=== PATIENT | female | born 1985 | race Caucasian/White ===

== ENCOUNTER → 2017-09-09 | Outpatient (CLI) | payer OTHER | LOC: FIMAGING 08:13 | PROVIDERS: ATTEND Advanced Practice Midwife | DX: Z36.89 Encounter for other specified antenatal screening (principal); Z3A.12 12 weeks gestation of pregnancy ==

== ENCOUNTER → 2017-11-08 | Outpatient (CLI) | payer OTHER | LOC: FIMAGING 11:34 | PROVIDERS: ATTEND Obstetrics & Gynecology | DX: O28.8 Other abnormal findings on antenatal screening of mother (principal); Z3A.21 21 weeks gestation of pregnancy ==

== ENCOUNTER → 2017-12-16 | Outpatient (CLI) | payer OTHER | LOC: FIMAGING 14:13 | PROVIDERS: ATTEND Obstetrics & Gynecology | DX: O28.8 Other abnormal findings on antenatal screening of mother (principal); Z3A.28 28 weeks gestation of pregnancy ==

== ENCOUNTER 2018-03-06 19:52 | Inpatient (IN) | payer OTHER ==
[2018-03-06] MEDS ORDERED: MISOPROSTOL 200 MCG TAB PR PRN (20:24)
[2018-03-06] MEDS ORDERED: OXYTOCIN/NORMAL SALINE 1,000 ML IV PRN (20:24)
[2018-03-06] MEDS ORDERED: LR 1,000 ML IV PRN (20:24)
[2018-03-06] MEDS ORDERED: LIDOCAINE 1% 300 MG/30 ML SDV SC PRN (20:24)
[2018-03-06] MEDS ORDERED: OLIVE OIL 118 ML BTL MISC PRN (20:24)
[2018-03-06] MEDS ORDERED: EPSOM SALT 454 GM TP PRN (20:24)
[2018-03-06] MEDS ORDERED: TERBUTALINE SULFATE 1 MG/ML VIAL IV PRN (20:24)
[2018-03-06] MEDS ORDERED: OLIVE OIL 118 ML BTL ONE (20:50)
[2018-03-06] MEDS ORDERED: LIDOCAINE 1% 300 MG/30 ML SDV ONE (20:50)
[2018-03-06] MEDS ORDERED: OXYTOCIN 10 UNIT/ML VIAL ONE (20:51)
[2018-03-06] MEDS ORDERED: MISOPROSTOL 200 MCG TAB ONE (20:51)
[2018-03-06] MEDS ORDERED: AMMONIA AROMATIC 1 EACH AMP IH ONE (20:51)
[2018-03-06] MEDS ORDERED: TERBUTALINE SULFATE 1 MG/ML VIAL ONE (20:51)
[2018-03-06 21:17] LABS: PLATELET COUNT 241 10^3/uL (150-400)
[2018-03-06] MEDS ORDERED: fentaNYL 100 MCG/2 ML INJ ONE (21:45)
[2018-03-06] MEDS ORDERED: PHENYLEPHRINE HCL 100 MCG/ML SYR ONE (21:45)
[2018-03-06] MEDS ORDERED: fentaNYL 200 MCG, BUPIVACAINE 0.5% 20 ML in NS 100 ML EP SCH (22:00)
[2018-03-06] MEDS ORDERED: PHENYLEPHRINE HCL 100 MCG/ML SYR IVP PRN (22:26)
[2018-03-06] MEDS ORDERED: METOCLOPRAMIDE 10 MG/2 ML VIAL IVP PRN (22:26)
[2018-03-06] MEDS ORDERED: ONDANSETRON 4 MG/2 ML VIAL IVP PRN (22:26)
[2018-03-06] MEDS ORDERED: NALOXONE HCL 0.4 MG/ML INJ IVP PRN (22:26)
--- NOTE | 2018-03-06 22:26 | PREANESOB ---
Obstetric Pre-Anesthesia Info - General Info Proposed Procedure: louis NPO Start Time: 22:24 : 1 Para: 0 SAMANTHA: 03/10/18 Gestational Age: 39 week(s) and 3 day(s) - Info Monitors: External - Labor Status Cervical Dilation per last OB SVE: 3 PIH: No Magnesium Sulfate in Use: No Indications for Labor Analgesia: Pain Control Labor Epidural: Yes Anesthesia Allergies/Adverse Reactions: Allergy/AdvReac Type Severity Reaction Status Date / Time No Known Allergies Allergy Verified 03/06/18 20:28 Visit Medications: Generic Name Dose Route Start Last Admin Trade Name Freq PRN Reason Stop Dose Admin Lactated Ringer's 1,000 mls @ 0 mls/hr 03/06/18 20:24 Lr IV 03/07/18 20:23 PRN PRN SEE PROTOCOL CONDITIONS Protocol Per Protocol Oxytocin/Sodium Chloride 1,000 mls @ 0 mls/hr 03/06/18 20:24 Pitocin 20 Units/Ns (Premix) IV PRN PRN Post Bleeding Per Protocol Fentanyl 200 mcg/ Bupivacaine 100 mls @ 0 mls/hr 03/06/18 22:00 HCl 20 ml/ Sodium Chloride EP 03/16/18 21:59 CONT JOSE Protocol As Directed Ibuprofen 600 mg 03/06/18 20:24 Motrin PO 09/02/18 20:23 Q6HRS PRN post , inflammation Lidocaine HCl 300 mg 03/06/18 20:24 Lidocaine Hcl 1% SC 09/02/18 20:23 ONCE PRN episiotomy Magnesium Sulfate 454 gm 03/06/18 20:24 Epsom Salt TP 09/02/18 20:23 Q1H PRN perineal discomfort Misoprostol 800 - 1,000 mcg 03/06/18 20:24 Cytotec MD ONCE PRN Vaginal Atony/Bleeding Ludlow Oil 118 ml 03/06/18 20:24 Sweet Oil MISC 09/02/18 20:23 ONCE PRN perineal massage Terbutaline Sulfate 0.25 mg 03/06/18 20:24 Brethine IV 09/02/18 20:23 ONCE PRN Tachysystole Discontinued Medications Generic Name Dose Route Start Last Admin Trade Name Freq PRN Reason Stop Dose Admin Ammonia (Aromatic Spirit) Confirm 03/06/18 20:51 Ammonia Aromatic Administered 03/06/18 20:52 Dose 1 each IH .STK-MED ONE Ephedrine Sulfate Confirm 03/06/18 21:45 Ephedrine Sulfate Administered 03/06/18 21:46 Dose 50 mg .ROUTE .STK-MED ONE Fentanyl Confirm 03/06/18 21:45 Sublimaze Administered 03/06/18 21:46 Dose 100 mcg .ROUTE .STK-MED ONE Lidocaine HCl Confirm 03/06/18 20:50 Lidocaine Hcl 1% Administered 03/06/18 20:51 Dose 300 mg .ROUTE .STK-MED ONE Misoprostol Confirm 03/06/18 20:51 Cytotec Administered 03/06/18 20:52 Dose 1,000 mcg .ROUTE .STK-MED ONE Ludlow Oil Confirm 03/06/18 20:50 Sweet Oil Administered 03/06/18 20:51 Dose 118 ml .ROUTE .STK-MED ONE Oxytocin Confirm 03/06/18 20:51 Pitocin Administered 03/06/18 20:52 Dose 40 unit .ROUTE .STK-MED ONE Phenylephrine HCl Confirm 03/06/18 21:45 Neosynephrine Administered 03/06/18 21:46 Dose 1,000 mcg .ROUTE .STK-MED ONE Terbutaline Sulfate Confirm 03/06/18 20:51 Brethine Administered 03/06/18 20:52 Dose 1 mg .ROUTE .STK-MED ONE - Anesthesia History Response to Local Anesthetics: Normal Anesthesia & Operative History: No Prior Problems Family Anesthesia History: Negative - Social History Substance Use/Abuse: Denies - Vital Signs Height/Weight (Nursing): Height 162.56 cm Weight 79.379 kg - Focused Exam Neck exam: FROM Mallampati Score: Class 1 Mouth exam: normal dental/mouth exam Pulmonary: no respiratory distress Labs: 03/06/18 20:50 Patient ABO/Rh B NEGATIVE 03/06/18 20:50 - Plan Consent Signed and on Chart: Yes
[2018-03-06] MEDS ORDERED: LR 500 ML IV SCH (22:30)
[2018-03-06] MEDS ORDERED: ACETAMINOPHEN 500 MG TAB ONE (23:41)
[2018-03-06] MEDS ORDERED: ACETAMINOPHEN 500 MG TAB PO ONE (23:45)
--- NOTE | 2018-03-07 01:32 | GHP ---
[f rep st] PREOP HISTORY AND PHYSICAL DATE OF ADMISSION: 03/06/2018 HISTORY: Upon admission, the patient is a 32-year-old G1, P0 at 39-plus weeks' gestation with an est imated due date of 03/10/2018 who presents with increasing contractions with building intensity. The patient also has had increased moisture that she has felt was related to her mucus plug for a couple days. The fluid has been clear. Patient denies any vaginal bleeding. Has reported good move ment. The patient reports contractions have been mild again early this morning and started to increa se in frequency but remained mild until this evening. Upon initial exam in the hospital, the patient was 3 to 4 cm dilated, 70% effaced, at -1 station. Nitrazine check was positive. However, the kuldip ent admits to having a lot of intercourse this morning to try to stimulate labor. The patient initia lly wanted to pursue a natural labor pattern and use nitrous. However, the contraction intensity was increasing, and the patient requested an epidural for labor comfort. Upon my arrival, the patient w as receiving her epidural by Dr. Sykes of Anesthesia. Prior to the epidural, the baseline hear t rate was in the 150s with moderate variability with accelerations noted. After the epidural, the p atient became hypotensive, and there was prolonged deceleration. The patient had change of position and was given oxygen. She was on hands and knees position, and subcu terbutaline was given to lessen the contractions. The heartbeat did recover to the 170s but was minimal variability in the short te rm after the deceleration. The heart tones have continued to have a slow recovery pattern. CARE: The patient has been with [facility] since 8 weeks' gestation. The patient was seen by Maternal Medicine for 1st trimester nuchal translucency ultrasound. She also had cell free DNA testing that was negative. With MSAFP testing, the patient's result revealed an elevat ed AFP. The patient had an additional consult with a maternal specialist who had a good thorou gh evaluation of the body wall and felt that the spine and front body wall were intact. The suspicio n was that the increased AFP could be a placental factor and increased the patient's risk for IUGR an d placental dysfunction. LABS: The patient's blood type is B negative with negative antibody screen. RPR nonreactiv e. Rubella immune. Hepatitis B surface antigen negative. HIV negative. Standard genetic panel all negative. TSH was normal. Initial hematocrit 35% with drop to 33% in mid . Urinalysis an d culture were negative. Verifi testing was negative. One-hour Glucola normal. RhoGAM was received on December 19 after a negative antibody screen. GBS culture was negative. PAST MEDICAL HISTORY: The patient had abnormal Pap smear several years ago and had colposcopies x2. No treatment or removal of cervical tissue. History of HPV. History of acid reflux. PAST SURGICAL HISTORY: Negative. ALLERGIES: No known drug allergies. CURRENT MEDICATIONS: Only vitamins, fish oil, and iron supplementation. SOCIAL HISTORY: The patient is , lives with her , Pritesh. The patient and both work in the school system. Patient is a nonsmoker. No alcohol or drug use. PHYSICAL EXAM: Upon presentation, the patient's initial blood pressures were 150s over 80s, and the patient was afebrile. Early time on Labor and Delivery, the patient's temp increased to 37.7, and th e patient received a gram of Tylenol due to gradually increasing heart rate. The patient also receiv ed a fluid bolus of 500 mL LR. heart tones after the deceleration due to the hypotension with the epidural have shown a slow recovery pattern. The patient had reflexive tachycardia to the 170s w ith decreased variability. After the fluid bolus and Tylenol, the heart rate has gradually decreased baseline. However, deep variables have started. An IUPC has been placed and an amnioinfusion begun . Baseline has improved down to the 150s. This is a category 2 tracing. Contractions show an adequ ate pattern with IUPC every 3 minutes. Last cervical exam revealed changed to 5 cm dilated, 90% effa grady, at 0 station. AROM was performed of a forebag, and blood-tinged fluid was obtained. This was a t the time the IUPC was placed. Extremities nontender and no edema. PIH labs revealed normal result s. ASSESSMENT: Intrauterine at 39-plus weeks' gestation. Category 2 tracing after hypotensio n related to epidural placement. Deep variables occurring, and an amnioinfusion is going. GBS negat wander. Maternal blood type B negative, and RhoGAM was given in November. Increased AFP testing in 2nd trimester that possibly was related to a placental issue. PLAN: Will continue to monitor the heart tones closely and continue amnioinfusion. /[id number]/MODL
--- NOTE | 2018-03-07 01:50 | OBPROG ---
Labor Progress Note Assessment/Plan: Assessment: IUP at 39 +wks SOOC and AROM - GBS- CAT II Plan: rapid progress of labor - amnioinfusion low grade temp - need to treat to cover chorio with tachy and question for prolonged ROM 03/07/18 01:42 Subjective/Intrapartum Course: 03/07/18 01:50 Pt able to feel ctxns as tightening. no nausea. Disc through the scenario of c/ s if needed. Objective: 03/06/18 20:50 03/06/18 20:50 Patient ABO/Rh B NEGATIVE 03/06/18 20:50 Uric Acid 5.4 mg/dL (2.5-6.8) 03/06/18 20:50 Total Bilirubin 0.3 mg/dL (0.1-1.4) 03/06/18 20:50 Conjugated Bilirubin 0.3 mg/dL (0.0-0.5) 03/06/18 20:50 Unconjugated Bilirubin 0.0 mg/dL (0.0-1.1) 03/06/18 20:50 AST 18 IU/L (14-46) 03/06/18 20:50 ALT 30 IU/L (9-52) 03/06/18 20:50 Lactate Dehydrogenase 416 IU/L (313-618) 03/06/18 20:50 - SVE Dilation (cm): 8 Effacement (%): 100 Station: 0 Membranes: AROM Amniotic Fluid Color: Bloody - Contraction Pattern Assessment Current Contraction Pattern: Regular (q 3-4 min) - FHR Assessment Spears FHR (bpm): 160 FHR Pattern Variability: Moderate FHR Category: 2 - Procedures Non-surgical Procedures: Amniotomy, IUPC Oxytocin Orders Assessment - Pre-Induction/Augmentation Assessment Gestational Age: 39 week(s) and 3 day(s) ICD10 Worksheet Patient Problems: Problems Problem Status Onset Chorioamnionitis Acute - ICD10 Problem Qualifiers (1) Chorioamnionitis
[2018-03-07] MEDS: AMPICILLIN SODIUM 2 GM in STERILE WATER INJ 25 ML IV SCH (02:26)
[2018-03-07] MEDS ORDERED: DOCUSATE SODIUM 100 MG CAP PO PRN (03:51)
--- NOTE | 2018-03-07 03:57 | OBDEL ---
Info Type: Vaginal Presentation at Delivery: Vertex L&D Analgesia/Anesthesia Type: Epidural GBS+: No Intrapartum Medications: Generic Name Dose Route Start Last Admin Trade Name Freq PRN Reason Stop Dose Admin Ampicillin Sodium 2 gm/ 25 mls @ 100 mls/hr 03/07/18 02:30 03/07/18 02:26 Sterile Water IV 04/06/18 02:29 25 mls Q6H JOSE Administration Protocol - Infant Care Provider Field Assembly Supervisor/FABRICATION LEAD: Ximena Dubois (FABRICATION LEAD) - Hospital Course Intrapartum: 03/07/18 01:50 Pt able to feel ctxns as tightening. no nausea. Disc through the scenario of c/ s if needed. Indications for Delivery: Spontaneous Labor Vaginal Delivery - Delivery Provider Delivery Physician/CNM: Deanna Steward - Labor and Delivery Onset of Contractions Date: 03/06/18 Onset of Contractions Time: 18:15 Onset of Contractions Type: Spontaneous Rupture of Membranes Date: 03/06/18 Rupture of Membranes Time: 20:11 Rupture of Membranes Type: Artificial Amniotic Fluid Color: Bloody Dilation Complete Date: 03/07/18 Dilation Complete Time: 02:48 Placenta Delivery Date: 03/07/18 Placenta Delivery Time: 03:23 Total Hours of Labor: 9 Non-surgical Procedures: Amniotomy, IUPC Vaginal Sponge Count Correct: Yes Vaginal Needle Count Correct: Yes Vaginal Sweep Performed: Yes EBL: 300 Delivery Events: Nuchal Cord (x1 loose and reduced) Cord Gases: Cord Gases Cord VBG pH 7.13 (7.20-7.42) L 03/07/18 03:17 Operative Report - Delivery Cord Gases: Cord Gases Cord VBG pH 7.13 (7.20-7.42) L 03/07/18 03:17 Data SAMANTHA: 03/10/18 Gestational Age: 39 week(s) and 4 day(s) Spears Delivery Date: 03/07/18 Delivery Time: 03:17 Sex of : Male Score (1 Min): 1 Score (5 Min): 8 ICD10 Worksheet Patient Problems: Problems Problem Status Onset (spontaneous vaginal delivery) Acute Chorioamnionitis Acute - ICD10 Problem Qualifiers (1) Chorioamnionitis
[2018-03-07] MEDS: IBUPROFEN 600 MG TAB PO PRN ×4 (03:59→22:46)
[2018-03-07] MEDS ORDERED: ACETAMINOPHEN 500 MG TAB PO ONE ×3 (04:03→05:00)
[2018-03-07] MEDS ORDERED: GENTAMICIN 100 MG/NACL 100 ML IV ONE (05:31)
[2018-03-07] MEDS ORDERED: AMPICILLIN SODIUM 2 GM in STERILE WATER INJ 25 ML IV SCH (06:00)
--- NOTE | 2018-03-07 11:02 | PDMN ---
Medical Necessity Medical necessity: Patient meets inpatient criteria per physician note and MCG S -1180 Vaginal Delivery.
--- NOTE | 2018-03-07 11:11 | OBPP ---
Progress Note Assessment/Plan: Assessment: PPD0 (delivered 0300 this AM) s/p - labor complicated by dx of suspected chorioamnionitis. Given Amp and Gent x 1 in response to fever, tachycardia, and odor with meconium/delivery. Infection - Afebrile now, mom and baby doing well. Will not do any additional doses of abx unless otherwise indicated. Routine cares otherwise. Likely home tomorrow - changed Hct to CBC tomorrow AM. JM Subjective/ Course: Generally doing well - was able to get some sleep after delivery. Baby latching well on both sides. They have questions about trimming the baby's fingernails. Pain well controlled, breakfast went fine. Objective: 03/06/18 20:50 03/06/18 20:50 Patient ABO/Rh B NEGATIVE 03/07/18 04:13 Uric Acid 5.4 mg/dL (2.5-6.8) 03/06/18 20:50 Total Bilirubin 0.3 mg/dL (0.1-1.4) 03/06/18 20:50 Conjugated Bilirubin 0.3 mg/dL (0.0-0.5) 03/06/18 20:50 Unconjugated Bilirubin 0.0 mg/dL (0.0-1.1) 03/06/18 20:50 AST 18 IU/L (14-46) 03/06/18 20:50 ALT 30 IU/L (9-52) 03/06/18 20:50 Lactate Dehydrogenase 416 IU/L (313-618) 03/06/18 20:50 Temp Pulse Resp BP Pulse Ox 36.6 C 72 18 121/75 H 97 03/07/18 09:00 03/07/18 09:00 03/07/18 09:00 03/07/18 09:00 03/07/18 09:00 Uterine Position/Fundal Height: At Umbilicus Uterine Tone: Firm
--- NOTE | 2018-03-07 13:59 | POSTANESTH ---
Post Anesthetic Evaluation Cardiovascular Status: Normal, Stable Respiratory Status: Normal, Stable Level of Consciousness/Mental Status: Can Participate in Eval Pain Control: Adequate, Prn Tx Ordered Nausea/Vomiting Control: Adequate, Prn Tx Ordered Complications Possibly Related to Anesthesia: None Noted
[2018-03-08] MEDS: AMPICILLIN SODIUM 2 GM in STERILE WATER INJ 25 ML IV SCH (02:07)
[2018-03-08] MEDS: IBUPROFEN 600 MG TAB PO PRN ×4 (04:15→22:19)
[2018-03-08] MEDS: FERROUS SULFATE 325 MG TAB PO SCH (10:42)
[2018-03-08] MEDS ORDERED: LIDOCAINE 1% 2 ML INJ ONE (12:16)
[2018-03-08] MEDS ORDERED: SUCROSE 1 EA UDL ONE (12:17)
[2018-03-09] MEDS: IBUPROFEN 600 MG TAB PO PRN ×2 (03:30→14:23)
[2018-03-09] MEDS: FERROUS SULFATE 325 MG TAB PO SCH (09:54)
--- NOTE | 2018-03-09 09:55 | OBPP ---
Progress Note Assessment/Plan: Assessment: s/p PPD # 2 - pt is stable Plan: Plan for d/c home, pt will board Instructions reviewed with pt No Rx given Cont Motrin, colace and PNV RTO in 4 and 6 weeks 03/09/18 09:48 Subjective/ Course: Generally doing well - was able to get some sleep after delivery. Baby latching well on both sides. They have questions about trimming the baby's fingernails. Pain well controlled, breakfast went fine. 03/09/18 09:55 Pt seen and examined. Doing well with no complaints. Minimal cramping. Mod lochia. Pt is OOB, ray reg diet, voiding and BM x1. BF without difficulty. Baby boy t. NICU secondary to blood sugar issues. Objective: 03/08/18 04:20 03/06/18 20:50 Patient ABO/Rh B NEGATIVE 03/07/18 04:13 Uric Acid 5.4 mg/dL (2.5-6.8) 03/06/18 20:50 Total Bilirubin 0.3 mg/dL (0.1-1.4) 03/06/18 20:50 Conjugated Bilirubin 0.3 mg/dL (0.0-0.5) 03/06/18 20:50 Unconjugated Bilirubin 0.0 mg/dL (0.0-1.1) 03/06/18 20:50 AST 18 IU/L (14-46) 03/06/18 20:50 ALT 30 IU/L (9-52) 03/06/18 20:50 Lactate Dehydrogenase 416 IU/L (313-618) 03/06/18 20:50 Temp Pulse Resp BP Pulse Ox 36.4 C 106 H 16 126/73 H 94 03/08/18 21:18 03/08/18 21:18 03/08/18 21:18 03/08/18 21:18 03/08/18 21:18 Uterine Position/Fundal Height: Umbilicus -2 Uterine Tone: Firm Physical Exam - Physical Exam Respiratory: lungs clear, normal breath sounds Cardiac/Chest: regular rate, rhythm Abdomen: normal bowel sounds, non-tender, soft, flatus (+) Extremities: non-tender, swelling Skin: normal color, warm/dry Neuro/Psych: alert, normal mood/affect, oriented x 3
--- NOTE | 2018-03-09 09:58 | OBGCSDC ---
General Delivery Information - General Info : 1 Para: 1 Abortions: 0 Type: Vaginal L&D Analgesia/Anesthesia Type: Epidural, Nitrous Admission Date: 03/06/18 Labs: Patient ABO/Rh B NEGATIVE 03/07/18 04:13 Hct 34.6 % (38.0-47.0) L 03/08/18 04:20 - Hospital Course Intrapartum: 03/07/18 01:50 Pt able to feel ctxns as tightening. no nausea. Disc through the scenario of c/ s if needed. : Generally doing well - was able to get some sleep after delivery. Baby latching well on both sides. They have questions about trimming the baby's fingernails. Pain well controlled, breakfast went fine. 03/09/18 09:55 Pt seen and examined. Doing well with no complaints. Minimal cramping. Mod lochia. Pt is OOB, ray reg diet, voiding and BM x1. BF without difficulty. Baby boy t. NICU secondary to blood sugar issues. Vaginal - Delivery Provider Delivery Physician/CNM: Deanna Steward - Diagnosis Labor: Spontaneous Rupture of Membranes Type: Artificial Amniotic Fluid Color: Bloody Delivery Events: Nuchal Cord (x1 loose and reduced) - Procedures Non-surgical Procedures: Amniotomy, IUPC - Delivery Non-surgical Procedures: Amniotomy, IUPC EBL: 300 [place] Data SAMANTHA: 03/10/18 Gestational Age: 39 week(s) and 6 day(s) Spears Delivery Date: 03/07/18 Delivery Time: 03:17 Sex of Infant: Male [place] Weight (gm): 2790 g Score (1 Min): 1 Score (5 Min): 8 Discharge Information - Discharge Information Condition: Good Instruction/Follow Up: Four Weeks, Six Weeks
[2018-03-09 10:44] VITALS: BP 128/80
== END 2018-03-09 18:10 | disposition home or self-care (01) | DRG 775 ==
LOC: FLD 19:52 → OBSVTOIN 20:24 → FOB 03-07 07:42
PROVIDERS: ADMIT Obstetrics & Gynecology; ATTEND Obstetrics & Gynecology
DX: O76 Abnormality in fetal heart rate and rhythm complicating labor and delivery (principal); O69.81X0 Labor and delivery complicated by cord around neck, without compression, not applicable or unspecified; O41.1230 Chorioamnionitis, third trimester, not applicable or unspecified; Z3A.39 39 weeks gestation of pregnancy; Z37.0 Single live birth
CPT/HCPCS: J0290; J2370; J2590; J3010; J3105